=== PATIENT | male | born 1970 | race Two or more races ===

== ENCOUNTER 2023-11-22 12:43 | Emergency (ER) | payer SELFPAY ==
[2023-11-22 13:21] VITALS: BP 144/80; PULSE 74; RESP 18; TEMP 98.4; BMI 27.4
[2023-11-22] MEDS ORDERED: ACETAMINOPHEN 325 MG TABLET (FP) ONE (13:40)
[2023-11-22] MEDS: ACETAMINOPHEN 500 MG TABLET (FP) PO ONE (13:51)
[2023-11-22 13:52] LABS: BASO % 0.5 % (0-2.0); EOS % 0.1 % (0-4.5); HEMATOCRIT 46.6 % (35.4-49); HEMOGLOBIN 15.7 GM/dL (11.7-16.9); LYMPH % 7.5 % (8-40); MCHC 33.8 g/dl (32.0-35.9); MEAN CELL VOLUME 88.7 fl (80-96); MEAN PLT VOLUME 9.8 fl (7.5-11.1); NEUT % 87.9 % (42.8-82.8); PLATELET COUNT 185 10^3/uL (134-434); RBC 5.25 M/mm3 (4.00-5.60); RDW 13.4 % (11.9-15.9); WHITE BLOOD COUNT 16.9 K/mm3 (4.0-10.0)
[2023-11-22 14:18] LABS: POTASSIUM 5.8 mmol/L (3.5-5.1)
[2023-11-22 14:19] LABS: CALCIUM 9.2 mg/dL (8.5-10.1)
[2023-11-22 14:20] LABS: ALBUMIN 4.3 g/dl (3.4-5.0); BLOOD UREA NITROGEN 20.8 mg/dL (7-18)
[2023-11-22 14:24] LABS: CREATININE 1.4 mg/dL (0.55-1.3)
[2023-11-22 14:25] LABS: BILIRUBIN,TOTAL 0.9 mg/dL (0.2-1); TOT PROT 8.1 g/dl (6.4-8.2)
== END 2023-11-22 15:20 | disposition home or self-care (01) ==
LOC: JER 12:43
DX: T75.4XXA Electrocution, initial encounter (principal); R07.89 Other chest pain
CPT/HCPCS: 36415; 80053; 82550; 82553; 85025; 93005; 93010; 99284-25

== ENCOUNTER 2025-01-14 16:43 | Emergency (ER) | payer OTHER ==
[2025-01-14 16:49] VITALS: TEMP 98.3; BMI 24.3
[2025-01-14] MEDS ORDERED: LIDOCAINE 4% PATCH TP ONE (17:47)
[2025-01-14] MEDS ORDERED: KETOROLAC TROMETHAMINE 30 MG/1 ML VIAL ONE (17:48)
[2025-01-14] MEDS ORDERED: ACETAMINOPHEN 325 MG TABLET (FP) ONE (17:48)
[2025-01-14 17:50] VITALS: BP 150/88; PULSE 61; RESP 15
[2025-01-14] MEDS: KETOROLAC TROMETHAMINE 30 MG/1 ML VIAL IM ONE (17:54)
[2025-01-14] MEDS: LIDOCAINE 4% PATCH TP ONE (17:54)
[2025-01-14] MEDS: ACETAMINOPHEN 325 MG TABLET (FP) PO ONE (17:55)
[2025-01-14] MEDS ORDERED: LIDOCAINE PATCH REMOVAL MC SCH (22:00)
== END 2025-01-14 18:00 | disposition home or self-care (01) ==
LOC: JERFT 16:43
PROC: 3E0233Z Introduction of Anti-inflammatory into Muscle, Percutaneous Approach (ICD-10-PCS; principal; 2025-01-14)
DX: M25.511 Pain in right shoulder (principal)
CPT/HCPCS: 99284-25